=== PATIENT | female | born 1985 | race Caucasian/White ===

== ENCOUNTER → 2018-09-29 10:40 | Outpatient (CLI) | payer OTHER, SELFPAY ==
--- NOTE | 2018-09-29 10:56 | DI.RAD.S_ITS ---
PROCEDURE: XR LUMBAR SPINE 2-3V INDICATIONS: Low back pain. TECHNIQUE: 3 views of the lumbar spine were acquired. COMPARISON: None. FINDINGS: Bones: 5 [id number] vertebrae are present. There is normal bony alignment. No vertebral body compression fractures. No suspicious bony lesions. Soft tissues: Overlying bowel gas pattern is normal. No suspicious soft tissue calcifications. IMPRESSION: Normal for age, source of current low back pain symptoms is not seen. Dictated by: Nehemiah Leal M.D. on 09/29/2018 at 12:16 Approved by: Nehemiah Leal M.D. on 09/29/2018 at 12:17
[2018-09-29 11:41] LABS: Cholesterol 206 mg/dL (140-199); HDL Cholesterol 59 mg/dL (40-60); LDL Cholesterol Calculated 127 mg/dL (<100); Triglycerides 100 mg/dL (35-150)
[2018-09-29 11:59] LABS: Vitamin D 25 Hydroxy (D3) 24.6 ng/mL (30.0-100.0)
[2018-09-29 12:14] LABS: TSH w/ Reflex to FT4 1.98 uIU/mL (0.47-4.68)
[2018-09-29 12:31] LABS: Vitamin B12 267 pg/mL (239-931)
[2018-09-30 15:16] LABS: Anti Thyroglobulin Antibody < 1 IU/mL (< 2); Thyroid Peroxidase Antibodies < 1 IU/mL (< 9)
== END ==
PROVIDERS: PCP Student in an Organized Health Care Education/Training Program; Visit Provider Student in an Organized Health Care Education/Training Program
DX: Z13.220 Encounter for screening for lipoid disorders (principal); R63.5 Abnormal weight gain; Z83.49 Family history of other endocrine, nutritional and metabolic diseases; R53.83 Other fatigue; E55.9 Vitamin D deficiency, unspecified; Z71.1 Person with feared health complaint in whom no diagnosis is made; M54.5 Low back pain
CPT/HCPCS: 36415; 72100; 80061; 82306; 82607; 84443; 86376; 86800

== ENCOUNTER → 2018-10-19 09:05 | Outpatient (CLI) | payer OTHER, SELFPAY ==
--- NOTE | 2018-10-19 09:06 | DI.MRI.S_ITS ---
PROCEDURE: MR CERVICAL SPINE WO CON INDICATIONS: Neck pain with parasthesia TECHNIQUE: Noncontrast sagittal T1 spin echo and T2 fast spin echo, sagittal STIR, foraminal oblique sagittal T2 fast spin echo, and axial gradient echo or T2 fast spin echo through the cervical spine. COMPARISON: None. FINDINGS: Image quality: Excellent. Alignment and Curvature: There is straightening and reversal of cervical curvature most notable at C5-6. There is trace anterolisthesis of C5 on C6. Bone Marrow: Marrow demonstrates normal overall signal. Minimal reactive end plate changes are present at C5-6. Spinal Cord: Visualized spinal cord has normal size and signal. No cerebellar tonsillar herniation. Paraspinous Soft Tissues: No paravertebral masses. Prevertebral soft tissues are normal in thickness. Discs: Mild to moderate desiccation is noted at C5-6. C2-C3: No disc bulge, spinal stenosis or foraminal narrowing. C3-C4: No disc bulge, spinal stenosis or foraminal narrowing. C4-C5: No disc bulge, spinal stenosis or foraminal narrowing. C5-C6: Mild disc bulge with moderate spinal stenosis. Mild to moderate left and mild right foraminal narrowing. C6-C7: Mild disc bulge with small superimposed posterior central protrusion with slight indentation of the anterior thecal sac and cord. Mild spinal stenosis is present. No foraminal narrowing. C7-T1: No disc bulge, spinal stenosis or foraminal narrowing. IMPRESSION: 1. Mild disc bulge with moderate spinal stenosis at C5-6 with mild/moderate bilateral foraminal narrowing. 2. Mild disc bulge with superimposed protrusion at C6-7 with mild spinal stenosis. Dictated by: Bettina Gómez M.D. on 10/19/2018 at 11:42 Approved by: Bettina Gómez M.D. on 10/19/2018 at 11:48
== END ==
PROVIDERS: PCP Student in an Organized Health Care Education/Training Program; Visit Provider Student in an Organized Health Care Education/Training Program
DX: M50.222 Other cervical disc displacement at C5-C6 level (principal); M48.02 Spinal stenosis, cervical region; S13.4XXA Sprain of ligaments of cervical spine, initial encounter; R29.818 Other symptoms and signs involving the nervous system; R20.2 Paresthesia of skin
CPT/HCPCS: 72141

== ENCOUNTER → 2019-04-21 08:56 | Outpatient (CLI) | payer OTHER, SELFPAY ==
[2019-04-21 10:35] LABS: Appearance Urine UA CLOUDY; Bilirubin Urine UA NEGATIVE (NEGATIVE); Color Urine UA YELLOW; Glucose Urine UA NEGATIVE (Negative); Ketones Urine UA NEGATIVE (NEGATIVE); Leukocyte Esterase Urine UA 3+ (NEGATIVE); Nitrite Urine UA POSITIVE (Negative); Occult Blood Urine UA 3+ (Negative); Protein Urine UA TRACE (Negative); Specific Gravity Urine UA 1.015 (1.000-1.035); Urobilinogen Urine UA 0.2 E.U./dL (0.2)
[2019-04-21 10:51] LABS: RBC Urine 30-100/HPF (0-5/HPF); WBC Urine 30-100/HPF (0-5/HPF); pH Urine UA 5.5 (4.5-8.0)
[2019-04-21 10:52] LABS: Bacteria Urine Many (>30); Culture Indicated Urine Specimen Cultured; Squamous Epithelial Cell Urine 1-5 /HPF (0-5/HPF)
== END ==
PROVIDERS: PCP Student in an Organized Health Care Education/Training Program; Visit Provider Student in an Organized Health Care Education/Training Program
DX: R39.89 Other symptoms and signs involving the genitourinary system (principal)
CPT/HCPCS: 81001; 87077; 87086; 87186

== ENCOUNTER → 2020-09-10 16:23 | Outpatient (CLI) | payer OTHER, SELFPAY ==
[2020-09-10 16:28] LABS: Bacteria Urine None Seen
[2020-09-10 17:26] LABS: Appearance Urine UA CLEAR; Bilirubin Urine UA NEGATIVE (NEGATIVE); Color Urine UA YELLOW; Glucose Urine UA NEGATIVE (Negative); Ketones Urine UA TRACE (NEGATIVE); Leukocyte Esterase Urine UA 1+ (NEGATIVE); Nitrite Urine UA POSITIVE (Negative); Occult Blood Urine UA 2+ (Negative); Protein Urine UA 1+ (Negative); Specific Gravity Urine UA >=1.030 (1.000-1.035); Urobilinogen Urine UA 0.2 E.U./dL (0.2)
[2020-09-10 17:53] LABS: Culture Indicated Urine Cult Not Indicated; RBC Urine 5-10/HPF (0-5/HPF); Squamous Epithelial Cell Urine 5-10 /HPF (0-5/HPF); WBC Urine 30-100/HPF (0-5/HPF)
== END ==
PROVIDERS: PCP Student in an Organized Health Care Education/Training Program; Referring Provider Student in an Organized Health Care Education/Training Program; Visit Provider Student in an Organized Health Care Education/Training Program
DX: R30.9 Painful micturition, unspecified (principal); R31.9 Hematuria, unspecified
CPT/HCPCS: 81001

== ENCOUNTER → 2021-04-26 09:29 | Outpatient (CLI) | payer OTHER, SELFPAY ==
--- NOTE | 2021-04-26 09:31 | DI.RAD.S_ITS ---
PROCEDURE: XR FOOT LT MIN 3V INDICATIONS: left foot/heel pain TECHNIQUE: 3 views of the foot were acquired. COMPARISON: None. FINDINGS: Bones: No fractures or dislocations. No suspicious bony lesions. Metatarsus primus varus is present. Soft tissues: No tibiotalar joint effusion. Achilles tendon appears normal. IMPRESSION: Metatarsus primus varus. No acute fracture. No osseous lesion. If symptoms and/or clinical suspicion for pathology persist, further assessment with repeat, or advanced imaging (e.g., CT, MRI, or bone scan) may be helpful for further assessment. Dictated by: Nikkie Rios M.D. on 04/26/2021 at 11:49 Approved by: Nikkie Rios M.D. on 04/26/2021 at 14:08
--- NOTE | 2021-04-26 09:31 | DI.RAD.S_ITS ---
PROCEDURE: XR FOOT RT MIN 3V INDICATIONS: right foot/heel pain TECHNIQUE: 3 views of the foot were acquired. COMPARISON: None. FINDINGS: Bones: No fractures or dislocations. No suspicious bony lesions. Soft tissues: No tibiotalar joint effusion. Achilles tendon appears normal. IMPRESSION: No visualized acute fracture or dislocation. However, if clinical concern and/or pain persist, short interval imaging followup in 7-10 days is recommended, as occult injury cannot be definitively excluded. Dictated by: Bettina Gómez M.D. on 04/26/2021 at 12:24 Approved by: Bettina Gómez M.D. on 04/26/2021 at 12:25
--- NOTE | 2021-04-26 09:31 | DI.RAD.S_ITS ---
PROCEDURE: XR LUMBAR SPINE 2-3V INDICATIONS: back pain TECHNIQUE: 3 views of the lumbar spine were acquired. COMPARISON: [facility], CR, XR LUMBAR SPINE 2-3V, 09/29/2018, 11:09. FINDINGS: Bones: 5 [id number] vertebrae are present. There is normal bony alignment. Mild degenerative endplate changes and bilateral facet arthrosis at L4-5 and L5-S1 levels are seen. No vertebral body compression fractures. No suspicious bony lesions. Soft tissues: Overlying bowel gas pattern is normal. No suspicious soft tissue calcifications. IMPRESSION: Very mild degenerative disc disease in lower lumbar spine as above. No compression fracture or spondylolisthesis. Dictated by: Ever Mott M.D. on 04/26/2021 at 10:51 Approved by: Ever Mott M.D. on 04/26/2021 at 10:51
--- NOTE | 2021-04-26 09:31 | DI.RAD.S_ITS ---
PROCEDURE: XR THORACIC SPINE 3V INDICATIONS: back pain TECHNIQUE: 3 views of the thoracic spine were acquired. COMPARISON: None. FINDINGS: Bones: No fractures or dislocations. No suspicious bony lesions. 12 pairs of ribs are noted, and appear intact where visualized. Soft tissues: No paravertebral stripe thickening. IMPRESSION: Unremarkable thoracic spine radiographs Approved by: Aakash Christiansen M.D. on 04/26/2021 at 11:05
== END ==
PROVIDERS: PCP Registered Nurse; Referring Provider Registered Nurse; Visit Provider Registered Nurse
DX: M54.9 Dorsalgia, unspecified (principal); M51.36 Other intervertebral disc degeneration, lumbar region; M79.672 Pain in left foot; M79.671 Pain in right foot; M21.6X2 Other acquired deformities of left foot
CPT/HCPCS: 72072; 72100; 73630

== ENCOUNTER → 2021-05-06 11:13 | Outpatient (CLI) | payer OTHER, SELFPAY ==
[2021-05-06 13:14] LABS: COVID19 -Nasal RAPID Negative (Negative)
== END ==
PROVIDERS: PCP Registered Nurse; Visit Provider Nurse Practitioner Family
DX: Z20.822 Contact with and (suspected) exposure to COVID-19 (principal)
CPT/HCPCS: 87635